=== PATIENT | female | born 1975 | race Caucasian/White ===

== ENCOUNTER 2018-02-15 11:14 | Emergency (ER) | payer BC ==
[2018-02-15 11:36] VITALS: BP 111/79; PULSE 83; TEMP 98.4
[2018-02-15 11:43] LABS: PH,URINE 5.5 (4.5-8); URINE APPEARANCE Clear; URINE BILIRUBIN Negative (NEGATIVE); URINE COLOR Amber; URINE GLUCOSE (UA) Negative (NEGATIVE); URINE KETONE Negative (NEGATIVE); URINE LEUK ESTERASE TRACE (NEGATIVE); URINE NITRITE Negative (NEGATIVE); URINE PROTEIN Negative (NEGATIVE); URINE UROBILINOGEN 0.2 (0.2-1.0)
[2018-02-15 11:49] LABS: HCG,QUALITATIVE URINE Negative
[2018-02-15 11:52] LABS: EPI CELLS 2+ /HPF; URINE BACTERIA 1+ /hpf (NEGATIVE)
[2018-02-15] MEDS ORDERED: PANTOPRAZOLE SODIUM 40 MG VIAL IVPUSH ONE (12:10)
[2018-02-15] MEDS ORDERED: PANTOPRAZOLE SODIUM 80 MG in SODIUM CHLORIDE 100 ML IVPB SCH (12:15)
[2018-02-15] MEDS ORDERED: PANTOPRAZOLE SODIUM 40 MG VIAL ONE (12:19)
--- NOTE | 2018-02-15 12:40 | PDOC ---
History of Present Illness - General Chief Complaint: Rectal Bleed Stated Complaint: BLOOD IN STOOL Time Seen by Provider: 02/15/18 11:18 History Source: Patient Exam Limitations: No Limitations - History of Present Illness Initial Comments: 02/15/18 12:39 42 year old female with no past medical history presents with dark stools x 3 days. The patient reports that she developed some epigastric pain. Noted daily dark stools. No nausea, vomiting. Does take peptol bismol. No fevers, chills. Pt never had an endoscopy. Called her PMD who came into the ER for an evaluation. Past History - Past Medical History Allergies/Adverse Reactions: Allergies Allergy/AdvReac Type Severity Reaction Status Date / Time No Known Allergies Allergy Verified 02/15/18 11:21 Home Medications: Ambulatory Orders Bismuth Subsalicylate [Pepto-Bismol -] 524 mg PO ONCE 02/15/18 Omeprazole Magnesium [Prilosec Otc] 20 mg PO ONCE 02/15/18 Pantoprazole Sodium [Protonix] 40 mg PO DAILY #30 tablet. 02/15/18 COPD: No - Suicide/Smoking/Psychosocial Hx Smoking History: Never smoked Hx Alcohol Use: No Drug/Substance Use Hx: No Review of Systems - Review of Systems Able to Perform ROS?: Yes Comments:: 02/15/18 13:07 GENERAL/CONSTITUTIONAL: [No fever or chills. No weakness. No weight change.] HEAD, EYES, EARS, NOSE AND THROAT: [No change in vision. No ear pain or discharge. No sore throat.] CARDIOVASCULAR: [No chest pain or shortness of breath.] RESPIRATORY: [No cough, wheezing, or hemoptysis.] GASTROINTESTINAL: [No nausea, vomiting, diarrhea or constipation. + abdominal pain and + dark stools GENITOURINARY: [No dysuria, frequency, or change in urination.] MUSCULOSKELETAL: [No joint or muscle swelling or pain. No neck or back pain.] SKIN AND BREASTS: [No rash or easy bruising.] NEUROLOGIC: [No headache, vertigo, loss of consciousness, or loss of sensation.] PSYCHIATRIC: [No depression or anxiety.] ENDOCRINE: [No increased thirst. No abnormal weight change.] HEMATOLOGIC/LYMPHATIC: [No anemia, easy bleeding, or history of blood clots.] ALLERGIC/IMMUNOLOGIC: [No hives or skin allergy. No latex allergy.] *Physical Exam - Vital Signs Last Vital Signs Temp Pulse Resp BP Pulse Ox 98.4 F 83 16 111/79 100 02/15/18 11:15 02/15/18 11:15 02/15/18 11:15 02/15/18 11:15 02/15/18 11:15 - Physical Exam Comments: 02/15/18 13:09 GENERAL: Awake, alert, and fully oriented, in no acute distress HEAD: No signs of trauma EYES: EOMI, sclera anicteric, conjunctiva clear ENT: Auricles normal inspection, hearing grossly normal, nares patent, Moist mucosa NECK: Normal ROM, supple, LUNGS: Breath sounds equal, clear to auscultation bilaterally. No wheezes, and no crackles HEART: Regular rate and rhythm, normal S1 and S2, no murmurs, rubs or gallops ABDOMEN: Soft, TTP epigastric. Noble sign negative. No guarding, no rebound. No masses RECTAL: Small external hemorrhoid. No fissures or tears. Dark stools on glove. No active bleeding. EXTREMITIES: Normal range of motion, no edema. No clubbing or cyanosis. No cords, erythema, or tenderness NEUROLOGICAL: Cranial nerves II through XII grossly intact. Normal speech, normal gait SKIN: Warm, Dry, normal turgor, no rashes or lesions noted. Moderate Sedation - Procedure Monitoring Vital Signs: Procedure Monitoring Vital Signs Temperature 98.4 F 02/15/18 11:15 Pulse Rate 83 02/15/18 11:15 Respiratory Rate 16 02/15/18 11:15 Blood Pressure 111/79 02/15/18 11:15 O2 Sat by Pulse Oximetry (%) 100 02/15/18 11:15 ED Treatment Course - LABORATORY CBC & Chemistry Diagram: 02/15/18 12:40 02/15/18 12:40 - ADDITIONAL ORDERS Additional order review: Laboratory Results 02/15/18 11:35 Urine Color Rupa Urine Appearance Clear Urine pH 5.5 Ur Specific [place] 1.015 Urine Protein Negative Urine Glucose (UA) Negative Urine Ketones Negative Urine Blood 2+ H Urine Nitrite Negative Urine Bilirubin Negative Urine Urobilinogen 0.2 Ur Leukocyte Esterase Trace H Urine RBC 10-20 Urine WBC 5-10 Ur Epithelial Cells 2+ Urine Bacteria 1+ Urine HCG, Qual Negative Medical Decision Making - Medical Decision Making 02/15/18 13:10 Vital Signs Temp Pulse Resp BP Pulse Ox 98.4 F 83 16 111/79 100 02/15/18 11:15 02/15/18 11:15 02/15/18 11:15 02/15/18 11:15 02/15/18 11:15 R/o UGIB. Pt VS stables. Labs including H&H Protonix bolus and drip. Stool occult Reassess. 02/15/18 13:51 CBC, BMP 02/15/18 12:40 02/15/18 12:40 CMP Sodium 137 mmol/L (136-145) 02/15/18 12:40 Potassium 3.4 mmol/L (3.5-5.1) L 02/15/18 12:40 Chloride 103 mmol/L (98-107) 02/15/18 12:40 Carbon Dioxide 26 mmol/L (22-28) 02/15/18 12:40 Anion Gap 8 MMOL/L (8-16) 02/15/18 12:40 BUN 11 mg/dl (7-18) 02/15/18 12:40 Creatinine 0.6 mg/dl (0.6-1.3) 02/15/18 12:40 Creat Clearance w eGFR > 60 (>60) 02/15/18 12:40 Random Glucose 87 mg/dl (74-106) 02/15/18 12:40 Calcium 9.5 mg/dl (8.4-10.2) 02/15/18 12:40 Total Bilirubin 1.0 mg/dl (0.2-1.0) 02/15/18 12:40 AST 20 U/L (10-42) 02/15/18 12:40 ALT 16 U/L (10-40) 02/15/18 12:40 Alkaline Phosphatase 69 U/L (32-92) 02/15/18 12:40 Total Protein 7.6 g/dl (6.4-8.3) 02/15/18 12:40 Albumin 4.3 g/dl (3.5-5.0) 02/15/18 12:40 UA with some RBCs and WBCs. Pt reports that she has chronic bladder issues where she received a cystoscopy that was unremarkable. However, today she has no symptoms. Will send urine culture. Stool occult negative. I did get an ample black stool sample, which tested negative. Pt did inform me that she took peptol bismol, which is likely culprit. I did inform patient she still likely has gastritis and still possible stomach ulcer. However, pt feels much more reassurred. Hgb 15.9. Case discussed with Dr. Otero. He feels comfortable with my plan for discharge and for follow up with Dr. Loco for outpatient GI workup. Will prescribe protonix. *DC/Admit/Observation/Transfer Diagnosis at time of Disposition: Gastritis Qualifiers: Gastritis type: unspecified gastritis Chronicity: acute Gastritis bleeding: without bleeding Qualified Code(s): K29.00 - Acute gastritis without bleeding - Discharge Dispostion Disposition: HOME Condition at time of disposition: Improved Decision to Admit order: No - Prescriptions Prescriptions: Pantoprazole Sodium [Protonix] 40 mg PO DAILY #30 tablet.dr - Referrals Referrals: Trenton Juárez MD [Primary Care Provider] - Malcolm Loco MD [Staff Physician] - - Patient Instructions Printed Discharge Instructions: [place] Diet, DI for Gastritis Additional Instructions: Please take 40 mg protonix daily. [place] diet. Please avoid peptol bismol. Follow up with Dr. Loco. Call to schedule an appointment. Bring a copy of the results to your doctor. Your urine culture is still pending. Please call back [phone] in the next 2 to 3 days for the results. - Post Discharge Activity
[2018-02-15 13:09] LABS: BASO % 0.4 % (0-2.0); EOS % 0.3 % (0-4.5); HEMATOCRIT 47.5 % (32.4-45.2); HEMOGLOBIN 15.9 GM/dl (10.7-15.3); LYMPH % 24.1 % (8-40); MCH 30.8 pg (25.7-33.7); MCHC 33.5 g/dl (32.0-36.0); MEAN CELL VOLUME 91.7 fl (80-96); MEAN PLT VOLUME 8.8 fl (7.5-11.1); MONO % 5.3 % (3.8-10.2); NEUT % 69.9 % (42.8-82.8); PLATELET COUNT 334 K/MM3 (134-434); RBC 5.17 M/mm3 (3.60-5.2); RDW 11.5 % (11.6-15.6); WHITE BLOOD COUNT 10.1 K/mm3 (4.0-10.8)
[2018-02-15 13:17] LABS: ALBUMIN 4.3 g/dl (3.5-5.0); ALK PHOS 69 U/L (32-92); ANION GAP 8 MMOL/L (8-16); BLOOD UREA NITROGEN 11 mg/dl (7-18); CALCIUM 9.5 mg/dl (8.4-10.2); CHLORIDE 103 mmol/L (98-107); CO2 26 mmol/L (22-28); CREATININE 0.6 mg/dl (0.6-1.3); GLUCOSE,RANDOM 87 mg/dl (74-106); POTASSIUM 3.4 mmol/L (3.5-5.1); SGOT/AST 20 U/L (10-42); SGPT/ALT 16 U/L (10-40); SODIUM 137 mmol/L (136-145); TOT PROT 7.6 g/dl (6.4-8.3)
[2018-02-15 13:31] LABS: ACTIVATED PTT 29.6 SECONDS (25.2-36.5)
[2018-02-15 13:36] LABS: INR 1.16 (0.82-1.09)
== END 2018-02-15 14:02 | disposition home or self-care (01) ==
LOC: SUPCPDRO 11:14 → FER 11:14
PROC: 3E033GC Introduction of Other Therapeutic Substance into Peripheral Vein, Percutaneous Approach (ICD-10-PCS; principal; 2018-02-15)
DX: K29.00 Acute gastritis without bleeding (principal)
CPT/HCPCS: 36415; 80053; 81003; 81015; 82272; 84703; 85025; 85610; 85730; 86850; 86900; 86901; 87086; 87186; 99283-25

== ENCOUNTER → 2020-09-16 | Day surgery (SDC) | payer OTHER | END | disposition home or self-care (01) | LOC: JRADUS-SUR 07:34 | PROVIDERS: ATTEND Family Medicine Geriatric Medicine | PROC: 0H9U3ZX Drainage of Left Breast, Percutaneous Approach, Diagnostic (ICD-10-PCS; principal; 2020-09-16) | DX: D24.2 Benign neoplasm of left breast (principal) | CPT/HCPCS: 19083; 77065-TC; 87899; A4648 ==